=== PATIENT | male | born 1960 | race Caucasian/White ===

== ENCOUNTER → 2024-04-06 15:45 | Outpatient (CLI) | payer MEDICARE, OTHER, SELFPAY ==
--- NOTE | 2024-04-06 15:51 | DI.MRI.S_ITS ---
PROCEDURE: MR KNEE RT WO CON INDICATIONS: RIGHT KNEE PAIN,INTERNAL DERANGEMENT TECHNIQUE: Noncontrast sagittal PD fast spin echo and T2 fast spin echo with fat saturation, sagittal 3-D FLASH with fat saturation; coronal T1 spin echo and PD fast spin echo with fat saturation, and axial PD fast spin echo with fat saturation through the knee. COMPARISON: [facility], CR, XR KNEE ARTHRITIC SERIES RT, 04/03/2024, 7:12. FINDINGS: Image quality: Diagnostic Menisci: Medial: Complex tears of the medial meniscus, with primary oblique component through the body extending to the posterior horn, which also has small vertical components. The root remains attached Lateral: Tiny horizontal tear and internal signal abnormality likely degenerative. Cruciate ligaments: Mild thinning of the distal ACL, with surrounding edema. PCL appears intact. Medial structures: MCL: Intact Pes anserine tendons: Mild bursal edema Semimembranosus: Intact Lateral structures: LCL: Mild thickening at the proximal aspect likely scarring. Biceps femoris: Intact IT band: Intact Popliteus tendon: Intact Anterior structures: Extensor mechanism: Mild insertional tendinopathy at the distal quadriceps Fat pads: Mild edema in the quadriceps and Hoffa's fat pad Medial retinaculum: Intact. Trochlea: Unremarkable morphology. Bone and joint: Bones: Mild edema is seen in the medial tibial plateau at the anterior and posterior aspects Cartilage: Full-thickness fissuring and cartilage loss is seen at the median ridge of the patella and lateral facet. High-grade loss is also seen in the medial compartment, nearly full-thickness. Partial thickness loss is seen in the femoral trochlea and lateral compartment. Joint space: Small joint effusion and debris Sher's cyst: Tiny Sher's cyst Soft tissues: No significant vascular or other soft tissue pathology. IMPRESSION: Complex medial meniscus tear as described above. Likely degenerative signal changes of the lateral meniscus. Mild focal edema in the anterior and posterior portions of the medial tibial plateau, likely osseous contusions. There is thinning and edema of the distal ACL, likely mucoid degeneration versus sequelae of prior injury. No full-thickness defect. No significant tear of the collateral ligaments. Overall moderate osteoarthritic changes, with nearly full-thickness cartilage loss throughout the medial compartment. Full-thickness fissures are seen in the patellar cartilage at the median ridge and lateral facet, with subchondral edema. Partial thickness loss is seen elsewhere. Small joint effusion and debris indicating synovitis. Tiny Sher's cyst. Fat pad edema in the quadriceps fat pad and Hoffa's fat pad. Pes anserine bursal edema. Insertional tendinopathy of the distal quadriceps. Dictated by: Shaq Mcginnis M.D. on 04/08/2024 at 9:46 Approved by: Shaq Mcginnis M.D. on 04/08/2024 at 9:53
== END ==
PROVIDERS: PCP Family Medicine; Referring Provider Orthopaedic Surgery; Visit Provider Orthopaedic Surgery
DX: S83.231A Complex tear of medial meniscus, current injury, right knee, initial encounter (principal); M25.461 Effusion, right knee; M25.561 Pain in right knee; M23.91 Unspecified internal derangement of right knee
CPT/HCPCS: 73721